=== PATIENT | female | born 1970 | race Caucasian/White ===

== ENCOUNTER → 2019-06-03 10:07 | Outpatient (CLI) | payer OTHER, SELFPAY ==
[2019-06-03 10:39] LABS: Add Manual Diff / Slide Review NO; Basophils Absolute Auto 100 /uL (0-100); Basophils Percent Auto 1.3 % (0-2); Eosinophils Absolute Auto 100 /uL (0-450); Eosinophils Percent Auto 2.6 % (2-4); Hematocrit 40.3 % (36-46); Hemoglobin 13.8 g/dL (12.0-16.0); Lymphocytes Absolute Auto 1400 /uL (1100-4500); Lymphocytes Percent Auto 25.8 % (25-40); Mean Corpuscular HGB Conc 34.3 % (30-36); Mean Corpuscular Hemoglobin 29.4 PG (26-34); Mean Corpuscular Volume 85.9 fL (80-100); Monocytes Absolute Auto 400 /uL (0-900); Monocytes Percent Auto 6.9 % (3-14); Neutrophils Absolute Auto 3400 /uL (1500-7000); Neutrophils Percent Auto 63.4 % (50-75); Platelet Count 274 X10^3/uL (150-400); Red Blood Cell Count 4.69 X10^6/uL (4.0-5.2); Red Cell Distribution Width 13.5 % (11.6-14.8); White Blood Cell Count 5.3 X10^3/uL (4.5-11.0)
[2019-06-06 08:42] LABS: Estrogen 192.8 pg/mL
== END ==
PROVIDERS: PCP Nurse Practitioner Family; Visit Provider Nurse Practitioner Family
DX: N93.9 Abnormal uterine and vaginal bleeding, unspecified (principal)
CPT/HCPCS: 36415; 82672; 83001; 85025

== ENCOUNTER → 2019-06-04 08:50 | Outpatient (CLI) | payer OTHER, SELFPAY ==
--- NOTE | 2019-06-04 08:51 | DI.US.S_ITS ---
PROCEDURE: US PELVIC COMPLETE INDICATIONS: ABNORMAL VAGINAL BLEEDING TECHNIQUE: Real-time scanning was performed of the pelvic organs, with image documentation. Additional endovaginal scanning was necessary due to incomplete visualization of the adnexal and endometrial structures by transabdominal scanning. COMPARISON: [facility], US, PELVIC COMPLETE, 06/03/2012, 14:32. FINDINGS: Transabdominal scanning: Limited scanning through the kidneys shows no hydronephrosis. No pathologic free abdominal or pelvic fluid. Endovaginal scanning: Uterus: Uterus is anteverted and normal in size at 8.1 x 6.3 x 4.9 cm. Heterogeneous echotexture with bulbous configuration. No increased vascularity appreciated. Several small intramural uterine fibroids. The largest fibroid measures 1.3 cm and the anterior mid uterus. The endometrium measures 3 mm in combined thickness. Ovaries: Normal Doppler. No torsion. Right ovary measures 4.6 x 4.4 x 2.5 cm. Simple right ovarian cyst measuring 3.7 x 2.5 x 2.1 cm. Left ovary measures 2.7 x 3.6 x 1.7 cm. Simple collapsed left ovarian cyst measures 2.4 x 1.6 x 0.7 cm. IMPRESSION: 1. Bulbous and heterogeneous fibroid uterus. This raises the possibility of underlying diffuse uterine adenomyosis. If clinically indicated MRI pelvis could be performed to further evaluate the junctional zone thickness for adenomyosis. 2. Normal endometrial thickness. 3. Normal ovaries. Small physiologic ovarian cysts. No free fluid in the pelvis. Dictated by: Andrés Feliciano M.D. on 06/04/2019 at 10:08 Approved by: Andrés Feliciano M.D. on 06/04/2019 at 10:26
== END ==
PROVIDERS: PCP Nurse Practitioner Family; Visit Provider Nurse Practitioner Family
DX: N83.292 Other ovarian cyst, left side (principal); N83.291 Other ovarian cyst, right side; N93.9 Abnormal uterine and vaginal bleeding, unspecified
CPT/HCPCS: 76830; 76856

== ENCOUNTER → 2019-08-19 08:39 | Outpatient (CLI) | payer OTHER, SELFPAY ==
[2019-08-19 09:37] LABS: Hemoglobin A1C% w Est Avg Glu 5.2 % (4.0-6.0)
[2019-08-19 10:21] LABS: Alanine Aminotransferase 31 IU/L (9-52); Albumin 4.3 g/dL (3.5-5.0); Albumin Globulin Ratio 1.6 (1.0-2.8); Alkaline Phosphatase 112 U/L (38-126); Aspartate Aminotransferase 29 IU/L (14-36); BUN Creatinine Ratio 16.3 (6-22); Bilirubin Total 0.6 mg/dL (0.2-1.3); Blood Urea Nitrogen 13 mg/dL (7-17); Calcium 9.5 mg/dL (8.4-10.2); Carbon Dioxide 29 mmol/L (22-32); Chloride 104 mmol/L (98-107); Cholesterol 195 mg/dL (140-199); Estimated Glomerular Filt Rate > 60.0 mL/min (>60); Globulin 2.7 g/dL (1.7-4.1); Glucose 92 mg/dL (70-100); HDL Cholesterol 64 mg/dL (40-60); HEMOLYSIS < 15 (0-50); LDL Cholesterol Calculated 113 mg/dL (<100); Sodium 140 mmol/L (137-145); Triglycerides 91 mg/dL (35-150)
== END ==
PROVIDERS: Visit Provider Psychiatry & Neurology Psychiatry
DX: Z79.899 Other long term (current) drug therapy (principal)
CPT/HCPCS: 36415; 80053; 80061; 83036

== ENCOUNTER → 2019-08-26 10:08 | Outpatient (CLI) | payer OTHER, SELFPAY ==
[2019-08-26 12:28] LABS: Erythrocyte Sedimentation Rate 17 MM/HR (0-20)
[2019-08-26 12:49] LABS: TSH w/ Reflex to FT4 1.46 uIU/mL (0.47-4.68)
[2019-08-28 15:15] LABS: HLA B27 POSITIVE (Negative)
[2019-08-29 01:04] LABS: ANA Screen, IFA NEGATIVE (NEGATIVE)
== END ==
PROVIDERS: Visit Provider Hospitalist
DX: R63.5 Abnormal weight gain (principal); M19.90 Unspecified osteoarthritis, unspecified site
CPT/HCPCS: 36415; 84443; 85651; 86038; 86812

== ENCOUNTER → 2021-04-05 10:51 | Outpatient (CLI) | payer OTHER, SELFPAY ==
[2021-04-05 11:38] LABS: COVID19 -Nasal RAPID Negative (Negative)
== END ==
PROVIDERS: PCP Family Medicine; Visit Provider Registered Nurse Diabetes Educator
DX: Z20.822 Contact with and (suspected) exposure to COVID-19 (principal); J02.9 Acute pharyngitis, unspecified
CPT/HCPCS: 87070; 87635

== ENCOUNTER → 2022-08-14 19:05 | Outpatient (ROUT) | payer BC, SELFPAY ==
[2022-08-14 19:50] LABS: Appearance Urine UA CLEAR; Bilirubin Urine UA NEGATIVE (NEGATIVE); Color Urine UA YELLOW; Glucose Urine UA NEGATIVE (Negative); Ketones Urine UA NEGATIVE (NEGATIVE); Leukocyte Esterase Urine UA 1+ (NEGATIVE); Nitrite Urine UA NEGATIVE (Negative); Occult Blood Urine UA 3+ (Negative); Protein Urine UA TRACE (Negative); Specific Gravity Urine UA <=1.005 (1.000-1.035); Urobilinogen Urine UA 0.2 E.U./dL (0.2)
[2022-08-14 19:56] LABS: pH Urine UA 6.5 (4.5-8.0)
[2022-08-14 19:59] LABS: Bacteria Urine Occasional (0-1); Culture Indicated Urine Specimen Cultured; RBC Urine 10-30/HPF (0-5/HPF); Squamous Epithelial Cell Urine 0-1 /HPF (0-5/HPF); Transitional Epi Cells Urine 0-1/HPF (0-5/HPF); WBC Urine 10-30/HPF (0-5/HPF)
== END ==
PROVIDERS: PCP Family Medicine; Visit Provider Internal Medicine
DX: R31.9 Hematuria, unspecified (principal)
CPT/HCPCS: 81001; 87086

== ENCOUNTER → 2023-04-01 10:29 | Outpatient (CLI) | payer BC, SELFPAY ==
[2023-04-01 11:29] LABS: Add Manual Diff / Slide Review NO; Basophils Absolute Auto 100 /uL (0-100); Basophils Percent Auto 1.1 % (0-2); Eosinophils Absolute Auto 200 /uL (0-450); Eosinophils Percent Auto 3.4 % (2-4); Hematocrit 40.7 % (36-46); Hemoglobin 13.6 g/dL (12.0-16.0); Lymphocytes Absolute Auto 1300 /uL (1100-4500); Mean Corpuscular HGB Conc 33.4 % (30-36); Mean Corpuscular Hemoglobin 28.2 PG (26-34); Mean Corpuscular Volume 84.4 fL (80-100); Monocytes Absolute Auto 300 /uL (0-900); Monocytes Percent Auto 6.2 % (3-14); Neutrophils Absolute Auto 3200 /uL (1500-7000); Neutrophils Percent Auto 63.3 % (50-75); Platelet Count 256 X10^3/uL (150-400); Red Blood Cell Count 4.83 X10^6/uL (4.0-5.2); Red Cell Distribution Width 13.8 % (11.6-14.8)
[2023-04-01 11:37] LABS: Alanine Aminotransferase 20 IU/L (<35); Albumin 4.1 g/dL (3.5-5.0); Albumin Globulin Ratio 1.5 (1.0-2.8); Alkaline Phosphatase 131 U/L (38-126); Aspartate Aminotransferase 23 IU/L (14-36); Bilirubin Total 0.6 mg/dL (0.2-1.3); Blood Urea Nitrogen 12 mg/dL (7-17); Calcium 9.2 mg/dL (8.4-10.2); Carbon Dioxide 29 mmol/L (22-32); Chloride 106 mmol/L (98-107); Cholesterol 169 mg/dL (140-199); Estimated Glomerular Filt Rate > 60 mL/min (>60); Globulin 2.7 g/dL (1.7-4.1); Glucose 101 mg/dL (70-100); HDL Cholesterol 71 mg/dL (40-60); HEMOLYSIS < 15 (0-50); LDL Cholesterol Calculated 87 mg/dL (<100); Potassium 4.4 mmol/L (3.4-5.1); Sodium 140 mmol/L (137-145); Total Protein 6.8 g/dL (6.3-8.2); Triglycerides 57 mg/dL (35-150)
[2023-04-01 12:11] LABS: TSH w/ Reflex to FT4 1.28 uIU/mL (0.47-4.68)
[2023-04-02 07:43] LABS: x Labcorp Estim. Avg Glu (eAG) 111 mg/dL (.); x Labcorp Hemoglobin A1c 5.5 % (4.8-5.6)
[2023-04-05 08:44] LABS: Percent Free Testosterone 0.83 % (0.50-2.80); Testosterone Free 0.28 ng/dL (0.10-0.85); Testosterone Total 34.3 ng/dL (.)
== END ==
PROVIDERS: PCP Family Medicine; Referring Provider Family Medicine; Visit Provider Family Medicine
DX: E66.01 Morbid (severe) obesity due to excess calories (principal); R53.83 Other fatigue
CPT/HCPCS: 36415; 80053; 80061; 83036; 84402; 84403; 84443; 85025

== ENCOUNTER 2023-09-11 20:35 | Emergency (ER) | payer BC, SELFPAY ==
[2023-09-11] VITALS (10 sets, daily range): BP systolic 139–167; BP diastolic 70–98; PULSE 55–85; RESP 12–35; TEMP 37.2; O2SAT 96–100; BMI 39.9
--- NOTE | 2023-09-11 20:50 | ED_ITS ---
HPI - Abdominal Pain General Chief Complaint: Abdominal Pain Stated Complaint: severe abd pain, vomiting Time Seen by Provider: 09/11/23 20:48 Source: patient, family, RN notes reviewed and old records reviewed Mode of arrival: Ambulatory Limitations: no limitations History of Present Illness HPI narrative: 53-year-old female with history of bipolar, ADHD with complaint of sudden onset of epigastric pain radiating to her. Patient states it started about 25 minutes prior to arrival. No fevers but has been sweaty. Shortness of breath. Patient did have nausea and vomiting. No reported issues with bowel movements has been stooling recently without any black or bloody stools. No urinary symptoms. No syncope. Patient has not had similar symptoms in the past. Takes multiple medications but mostly for mental health patient does take omeprazole daily. Denies any prior thoracic or abdominal surgeries. No known drug allergies. No tobacco, alcohol or illicit. Related Data Home Medications Medication Instructions Recorded Confirmed lamotrigine 250 mg tablet,extended 250 mg PO QDAY ##0 05/05/12 03/28/23 release 24 hr prazosin 2 mg capsule 2 mg PO ONCE 08/29/18 03/28/23 clonazepam 0.5 mg disintegrating 0.25 - 0.5 mg PO BIDP PRN ##0 06/03/19 03/28/23 tablet gabapentin 300 mg capsule 300 mg PO DAILY 06/03/19 03/28/23 propranolol 10 mg tablet 10 mg PO DAILY 06/03/19 03/28/23 dextroamphetamine-amphetamine 10 10 mg PO DAILY 03/28/23 03/28/23 mg tablet Previous Rx's Medication Instructions Recorded omeprazole 20 mg capsule,delayed 20 mg PO QDAY #90 tabs 06/27/16 release nystatin 100,000 unit/gram topical 1 applic topical BID #30 grams 04/08/23 powder nystatin 100,000 unit/gram topical 1 applic topical BID #30 grams 05/09/23 cream Allergies Allergy/AdvReac Type Severity Reaction Status Date / Time No Known Allergies Allergy Uncoded 03/28/23 10:06 Review of Systems Review of Systems ROS Unobtainable: All systems reviewed & are unremarkable except as noted in HPI and below Patient History Medical History Weight loss counseling, encounter for Chronic bilateral low back pain without sciatica Bilateral hip pain Fatigue Tinnitus of both ears Morbid obesity Bipolar disorder Osteoarthritis ADHD Fibromyalgia Ankle pain (~2014) Screen for colon cancer Rosacea (~2014) Acne Post traumatic stress disorder (PTSD) Depression Anxiety Foot pain (~1996) Chicken pox (~1977) Narrow angle glaucoma suspect of both eyes Varicose veins of left lower extremity Dyspepsia Surgical History Anesthesia History of foot surgery (~1997) History of colonoscopy (~04/2014) Family History Father Liver cancer History of heart disease Mental health problem Pancreas cancer Sister Flu Mother No problems noted. Brother Rheumatoid arthritis Sister Overweight Anxiety Mental health problem Sister Anxiety Mental health problem Grandfather Stroke Son Arthritis Social History Smoking Status: Never smoker alcohol intake: never substance use type: does not use Smoking Status: Never smoker Substance Use Type: does not use Exam Narrative Exam Narrative: GENERAL: Alert and oriented x three, obese female in moderate distress. HEENT: Head normocephalic, atraumatic, EOMI, pupils reactive, face symmetric, moist mucous membranes NECK: Supple, full range of motion CARDIOVASCULAR: Regular rate and rhythm without murmurs, rubs or gallops. RESPIRATORY: Breath sounds equal bilaterally, no wheezes rales or rhonchi. No tachypnea or accessory muscle use. ABDOMEN: Soft, nontender on examination. Normoactive bowel sounds all 4 quadrants. No guarding or rebound, rigidity, no mass : No CVA tenderness EXTREMITIES: Normal range of motion, no clubbing or edema. Neurovascularly intact. NEUROLOGICAL: Cranial nerves II through XII grossly intact. Moving all extremities SKIN: Warm, dry, no petechiae, no rashes or lesions. Initial Vital Signs Initial Vital Signs: Vital Signs Temperature 98.9 F 09/11/23 20:41 Pulse Rate 85 09/11/23 20:41 Respiratory Rate 24 09/11/23 20:41 Blood Pressure 167/98 H 09/11/23 20:41 Pulse Oximetry 99 09/11/23 20:41 Oxygen Delivery Method Room Air 09/11/23 20:41 Course Orders Ordered: ED Orders 09/11/23 20:49 CT angio chest abdomen pelvis Stat EKG-12 Lead Stat 09/11/23 20:50 Complete Blood Count AUTO DIFF Stat Comprehensive Metabolic Panel Stat Lactate (Lactic Acid) Stat Lipase Stat Troponin & CK Cardiac Panel Stat 09/11/23 22:50 Trop I [Troponin I] Stat Discontinued Medications Sodium Chloride (Normal Saline 0.9%) 1,000 mls @ 1,000 mls/hr IV BOLUS ONE Stop: 09/11/23 21:47 Last Infusion: 09/11/23 22:10 Dose: Infused Documented By: Admin: 09/11/23 21:04 Dose: 1,000 mls/hr Documented By: JOSE Morphine Sulfate (Morphine 4 Mg/Ml Inj) 4 mg IV NOW ONE Stop: 09/11/23 20:49 Last Admin: 09/11/23 21:00 Dose: 4 mg Documented By: JOSE Ondansetron HCl (Ondansetron 4 Mg/2 Ml Inj) 4 mg IV NOW ONE Stop: 09/11/23 20:49 Last Admin: 09/11/23 20:58 Dose: 4 mg Documented By: JOSE Vital Signs Vital signs: Vital Signs - 8 hr 09/11/23 20:41 09/11/23 21:28 09/11/23 21:30 Temperature 98.9 F Pulse Rate 85 65 69 Respiratory Rate 24 17 Blood Pressure 167/98 H Pulse Oximetry 99 98 96 Oxygen Delivery Method Room Air 09/11/23 21:31 09/11/23 21:31 09/11/23 22:00 Temperature Pulse Rate 67 60 Respiratory Rate 13 35 H Blood Pressure 148/70 H Pulse Oximetry 96 98 Oxygen Delivery Method 09/11/23 22:01 09/11/23 22:01 09/11/23 22:30 Temperature Pulse Rate 65 67 Respiratory Rate 22 32 H Blood Pressure 144/74 H Pulse Oximetry 99 99 Oxygen Delivery Method 09/11/23 22:51 09/11/23 22:51 09/11/23 23:00 Temperature Pulse Rate 55 L Respiratory Rate 12 Blood Pressure 139/74 142/74 H Pulse Oximetry 100 Oxygen Delivery Method 09/11/23 23:00 09/11/23 23:30 09/11/23 23:30 Temperature Pulse Rate 64 61 Respiratory Rate 21 17 Blood Pressure 148/82 H Pulse Oximetry 99 96 Oxygen Delivery Method 09/12/23 00:00 09/12/23 00:01 09/12/23 00:01 Temperature Pulse Rate 56 L 55 L Respiratory Rate 10 L 12 Blood Pressure 132/62 Pulse Oximetry 97 96 Oxygen Delivery Method MDM - Abdominal Pain Lab Data 09/11/23 20:50 09/11/23 20:50 Labs: Lab Results 09/11/23 09/11/23 Range/Units 20:50 22:50 WBC 7.1 (4.5-11.0) X10^3/uL RBC 4.82 (4.0-5.2) X10^6/uL Hgb 13.4 (12.0-16.0) g/dL Hct 39.5 (36-46) % MCV 81.9 (80-100) fL MCH 27.9 (26-34) PG MCHC 34.1 (30-36) % RDW 14.3 (11.6-14.8) % Plt Count 312 (150-400) X10^3/uL Neut % (Auto) 60.9 (50-75) % Lymph % (Auto) 30.5 (25-40) % Blount % (Auto) 6.7 (3-14) % Eos % (Auto) 1.6 L (2-4) % Baso % (Auto) 0.3 (0-2) % Neut # (Auto) 4300 (5685-9128) /uL Lymph # (Auto) 2200 (3581-4170) /uL Blount # (Auto) 500 (0-900) /uL Eos # (Auto) 100 (0-450) /uL Baso # (Auto) 0 (0-100) /uL Sodium 139 (137-145) mmol/L Potassium 4.3 (3.4-5.1) mmol/L Chloride 105 (98-107) mmol/L Carbon Dioxide 23 (22-32) mmol/L BUN 14 (7-17) mg/dL Creatinine 1.06 H (0.52-1.04) mg/dL Estimated GFR > 60 (>60) mL/min BUN/Creatinine Ratio 13.2 (6-22) Glucose 98 (70-100) mg/dL Lactate 1.6 (0.7-2.1) mmol/L Calcium 9.6 (8.4-10.2) mg/dL Total Bilirubin 0.5 (0.2-1.3) mg/dL AST 33 (14-36) IU/L ALT 21 (<35) IU/L Alkaline Phosphatase 118 (38-126) U/L Total Creatine Kinase 56 (30-135) U/L Troponin I < 0.012 < 0.012 (0.01-0.034) ng/mL Total Protein 7.6 (6.3-8.2) g/dL Albumin 4.4 (3.5-5.0) g/dL Globulin 3.2 (1.7-4.1) g/dL Albumin/Globulin Ratio 1.4 (1.0-2.8) Lipase 112 (23-300) U/L Point of care testing: Urine Dip Bedside Urine Glucose Negative Bedside Urine Bilirubin - Negative Bedside Urine Ketone - Negative Urine Specific [place] 1.015 Bedside Urine Occult Blood - Negative Bedside Urine pH 6.5 Bedside Urine Protein - Negative Bedside Urine Urobilinogen - Negative Bedside Urine Nitrite - Negative Bedside Urine Leukocytes - Negative Esterase Imaging Data CT angio chest/abd/pelvis: Radiologist's Impression: Close Chest/Abdomen/Pelvis CTA (Signed) Ramon Deluna - 09/11/23 Pelvis Ultrasound (Signed) Andrés Feliciano - 06/04/[address] [place] [address] CT Scan Report Signed Patient: BrennanJanuary MR#: [id number] : 1970 Acct:[id number] Age/Sex: 53 / F Date of Service: 09/11/23 Loc: ED Accession Number: [id number] Procedure: CT angio chest abdomen pelvis Ordering Provider: Dianna Dudley D.O. PROCEDURE: CT ANGIO CHEST ABDOMEN PELVIS INDICATIONS: sudden onset chest/abd pain radiates to back, +vomiting TECHNIQUE: Precontrast 5 mm thick sections acquired from the lung apices to the iliac crests. After the administration of intravenous contrast, 2.5 mm thick sections again acquired from the lung apices to the iliac crests. Maximum intensity projection (MIP) oblique sagittal and coronal reformats were then acquired. For radiation dose reduction, the following was used: automated exposure control. COMPARISON: None. FINDINGS: Image quality: Excellent. AORTA: No acute aortic syndrome or aneurysm. CHEST: Lungs and pleura: No acute airspace opacities. No pleural effusions or pneumothorax. Central and peripheral airways are patent and normal in caliber. Mediastinum: Heart size is normal. No pericardial effusion. No mediastinal or hilar adenopathy by size criteria. Central pulmonary arteries are normal in size. Esophagus is normal in caliber. Small hiatal hernia. Bones and chest wall: No axillary adenopathy by size criteria. No thyroid nodules which require sonographic evaluation. No suspicious bony lesions. No vertebral body compression fractures. ABDOMEN: Vasculature: Celiac trunk and mesenteric arteries are patent. Renal arteries are also patent. Solid organs: Liver is normal in size and enhancement. Gallbladder is unremarkable . Biliary system is non dilated. Pancreas enhances normally. Spleen is normal in size and enhancement. No adrenal nodules. Both kidneys are normal in size and enhancement, without hydronephrosis. Peritoneum and bowel: No free fluid or air. Bowel loops are normal in caliber and wall thickness. Colonic diverticulosis without evidence of diverticulitis. Nodes and vessels: No retroperitoneal or mesenteric adenopathy by size criteria. Inferior vena cava is normal in morphology. Miscellaneous: No ventral hernias. PELVIS: Genitourinary: Bladder wall thickness is normal. Miscellaneous: No inguinal hernias or adenopathy. No ventral hernias. Bones: No suspicious bony lesions. No vertebral body compression fractures. IMPRESSION: No acute aortic syndrome or aneurysm. No findings to explain the patient's abdominal pain/vomiting. Normal pancreas, gallbladder. No obstruction. Colonic diverticulosis without evidence of diverticulitis. Dictated by: Ramon Deluna M.D. on 09/11/2023 at 21:44 Approved by: Ramon Deluna M.D. on 09/11/2023 at 21:48 ECG Data Attestation: I personally reviewed and interpreted this ECG as follows: Prior ECG tracings: not available for review Interpretation: Sinus rhythm rate of 78 CA 142 QRS is 74 QTC [address]. No acute ST elevation or depression is appreciated. No priors for comparison. Repeat EKG shows sinus bradycardia rate of 58 CA 156 QRS is 74 QTC of 422. No acute or dynamic changes appreciated. [facility] Narrative Medical decision making narrative: 53-year-old morbidly obese female, slightly hypertensive but not tachycardic with sudden onset of epigastric pain radiating towards the back. Patient is mildly hypertensive. Differential includes GI, cardiac, vascular labs, EKG, CT angio were obtained. Patient had significant pain improvement with dose of morphine. CBC shows low eosinophils but otherwise normal hemoglobin, platelets and white count, chemistries are negative creatinine is 1.06 patient creatinine was 0.92 on 04/01/2023. Normal LFTs, troponins negative x2 without any acute or dynamic changes on EKG. Does not have any priors for comparison. Patient had CT angio which showed no acute changes, vessels are negative, normal liver gallbladder is unremarkable biliary systems non dilated, no free air or fluid. Patient has colonic diverticulosis without evidence of diverticulitis. Patient was slightly hypertensive on arrival but otherwise appropriate vitals throughout her stay. Discussed with patient no clear source of her symptoms is found today but she much improved and felt appropriate for discharge home. Discussed return precautions. Patient states symptoms are much improved we discussed if she has mild but controlled symptoms maybe useful to evaluate for gastritis or ulcer with EGD versus ultrasound of her gallbladder. Discharge Plan Departure Patient Disposition: Home Clinical Impression: Epigastric abdominal pain Instructions: DI for Epigastric Pain Activity Restrictions/Additional Instructions: Follow-up with your physician for recheck. Your workup today did not show any acute changes if you are having persistent symptoms in the epigastric area EGD may be helpful if it seems to be more in the right upper quadrant they may follow-up with ultrasound although your gallbladder appeared normal on your imaging today. You can try medication such as Pepcid 40 mg once daily [id number] for the next 30 days to see if this is helpful for symptoms Please return if you have new or worsening symptoms, fevers, persistent vomiting, lightheadedness or passing out, black or bloody stools, new chest pain or shortness of breath, new swelling in her extremities or other new or concerning changes. Prescriptions: No Action lamotrigine 250 MG tablet extended release 24hr 250 mg PO QDAY Qty: 0 omeprazole 20 MG capsule,delayed release(DR/EC) 20 mg PO QDAY Qty: 90 3RF clonazepam 0.5 mg tablet,disintegrating 0.25 - 0.5 mg PO BIDP PRNQty: 0 nystatin 100,000 unit/gram cream 1 applic topical BID Qty: 30 0RF Rx Instructions: Apply to affected areas twice daily until resolved prazosin 2 mg capsule 2 mg PO ONCE propranolol 10 mg tablet 10 mg PO DAILY gabapentin 300 mg capsule 300 mg PO DAILY dextroamphetamine-amphetamine 10 mg tablet 10 mg PO DAILY nystatin 100,000 unit/gram powder 1 applic topical BID Qty: 30 5RF Referrals: Shamar Mae DO [Primary Care Provider] - Stand Alone Forms: Patient Portal/API
[2023-09-11] MEDS: ONDANSETRON 4 MG/2 ML INJ IV (20:58)
[2023-09-11] MEDS: MORPHINE 4 MG/ML INJ IV (21:00)
[2023-09-11 21:03] LABS: Add Manual Diff / Slide Review NO; Basophils Absolute Auto 0 /uL (0-100); Basophils Percent Auto 0.3 % (0-2); Eosinophils Absolute Auto 100 /uL (0-450); Eosinophils Percent Auto 1.6 % (2-4); Hematocrit 39.5 % (36-46); Hemoglobin 13.4 g/dL (12.0-16.0); Lymphocytes Absolute Auto 2200 /uL (1100-4500); Lymphocytes Percent Auto 30.5 % (25-40); Mean Corpuscular HGB Conc 34.1 % (30-36); Mean Corpuscular Hemoglobin 27.9 PG (26-34); Mean Corpuscular Volume 81.9 fL (80-100); Monocytes Absolute Auto 500 /uL (0-900); Monocytes Percent Auto 6.7 % (3-14); Neutrophils Absolute Auto 4300 /uL (1500-7000); Neutrophils Percent Auto 60.9 % (50-75); Platelet Count 312 X10^3/uL (150-400); Red Blood Cell Count 4.82 X10^6/uL (4.0-5.2); Red Cell Distribution Width 14.3 % (11.6-14.8); White Blood Cell Count 7.1 X10^3/uL (4.5-11.0)
[2023-09-11] MEDS: SODIUM CHLORIDE 0.9% 1,000 ML 1000 ML IV (21:04)
[2023-09-11 21:15] LABS: Lactate (Lactic Acid) 1.6 mmol/L (0.7-2.1)
[2023-09-11 21:17] LABS: Alanine Aminotransferase 21 IU/L (<35); Albumin 4.4 g/dL (3.5-5.0); Albumin Globulin Ratio 1.4 (1.0-2.8); Alkaline Phosphatase 118 U/L (38-126); Aspartate Aminotransferase 33 IU/L (14-36); BUN Creatinine Ratio 13.2 (6-22); Bilirubin Total 0.5 mg/dL (0.2-1.3); Blood Urea Nitrogen 14 mg/dL (7-17); Calcium 9.6 mg/dL (8.4-10.2); Carbon Dioxide 23 mmol/L (22-32); Chloride 105 mmol/L (98-107); Creatine Kinase 56 U/L (30-135); Estimated Glomerular Filt Rate > 60 mL/min (>60); Globulin 3.2 g/dL (1.7-4.1); Glucose 98 mg/dL (70-100); HEMOLYSIS < 15 (0-50); Lipase 112 U/L (23-300); Potassium 4.3 mmol/L (3.4-5.1); Sodium 139 mmol/L (137-145); Total Protein 7.6 g/dL (6.3-8.2)
[2023-09-11 21:28] LABS: Troponin I < 0.012 ng/mL (0.01-0.034)
[2023-09-11 23:20] LABS: Troponin I < 0.012 ng/mL (0.01-0.034)
[2023-09-12] VITALS: PULSE 56; RESP 10; O2SAT 97
[2023-09-12 00:01] VITALS: BP 132/62; PULSE 55; RESP 12; O2SAT 96
== END 2023-09-12 00:30 | disposition home or self-care (01) ==
PROVIDERS: Emergency Provider Emergency Medicine; PCP Family Medicine
DX: R10.13 Epigastric pain (principal); I10 Essential (primary) hypertension; R06.02 Shortness of breath; R11.2 Nausea with vomiting, unspecified; R07.9 Chest pain, unspecified; R00.1 Bradycardia, unspecified
CPT/HCPCS: 36415; 71275; 74174; 80053; 81003; 82550; 83605; 83690; 84484; 85025; 93005; 93010; 96361; 96374; 96375; 99284; J2270; J2405; Q9967

== ENCOUNTER → 2023-09-17 15:50 | Outpatient (CLI) | payer BC, SELFPAY ==
--- NOTE | 2023-09-17 15:51 | DI.US.S_ITS ---
PROCEDURE: US ABDOMEN LIMITED INDICATIONS: RUQ PAIN TECHNIQUE: Real-time scanning was performed of the abdominal and retroperitoneal organs, with image documentation. COMPARISON: None. FINDINGS: Liver: Liver is normal in size and homogeneous in echotexture. Gallbladder: The gallbladder wall measures 2.1 mm in diameter. Multiple gallstones are present in the fundus. There is a 1.3 cm stone within the cystic duct. No pericholecystic fluid. The patient endorsed a positive sonographic Nickerson sign. Biliary ducts: Intrahepatic bile ducts are non-dilated. Extrahepatic bile duct caliber measures 1.1 mm. Normal is 6-7 mm or less in diameter, or 10 mm or less post-cholecystectomy. Pancreas: Visualized portions of the pancreas are sonographically normal. IMPRESSION: 1. Cholelithiasis in the absence of pericholecystic fluid or wall thickening. Stone noted within the cystic duct. Positive sonographic Nickerson sign. Findings are equivocal for acute cholecystitis. Dictated by: Ashley Cavanaugh M.D. on 09/17/2023 at 16:24 Approved by: Ashley Cavanaugh M.D. on 09/17/2023 at 16:26
== END ==
PROVIDERS: PCP Family Medicine; Referring Provider Family Medicine; Visit Provider Family Medicine
DX: K80.00 Calculus of gallbladder with acute cholecystitis without obstruction (principal); R10.11 Right upper quadrant pain; R10.13 Epigastric pain
CPT/HCPCS: 76705

== ENCOUNTER 2023-09-18 14:11 | Emergency (ER) | payer BC, SELFPAY ==
[2023-09-18 14:14] VITALS: BP 146/75; PULSE 82; RESP 18; TEMP 36.3; O2SAT 99; BMI 39.9
--- NOTE | 2023-09-18 15:39 | ED_ITS ---
HPI - Abdominal Pain General Chief Complaint: Abdominal Pain Stated Complaint: Dr rosado/anneliese Time Seen by Provider: 09/18/23 14:21 Source: patient, RN notes reviewed and old records reviewed Mode of arrival: Ambulatory Limitations: no limitations History of Present Illness HPI narrative: 53-year-old female with history of bipolar, prior surgical repair after perforation with colonoscopy in 2013. Patient states she had several days of abdominal pain which is now starting to improve. It is almost completely resolved right upper quadrant radiated towards the back. No fevers, no chills. She had nausea and vomiting for several days but no longer. States she is been having a little bit of constipation but stooling. Notes her urine has been darker but no dysuria urgency or frequency. Denies any chest pain, shortness of breath or other symptoms. Her primary care doctor Ganga ordered an abdominal ultrasound. Was found to have changes including thickened gallbladder wall multiple gallstones 1 in the cystic duct no pericholecystic fluid but positive Nickerson's sign with normal biliary ducts. Discussed with patient she is feeling improved. She was told to come to the ER for consultation with a surgeon, workup and possible removal of her gallbladder. Related Data Home Medications Medication Instructions Recorded Confirmed lamotrigine 250 mg tablet,extended 250 mg PO QDAY ##0 05/05/12 09/16/23 release 24 hr prazosin 2 mg capsule 2 mg PO ONCE 08/29/18 09/16/23 clonazepam 0.5 mg disintegrating 0.25 - 0.5 mg PO BIDP PRN ##0 06/03/19 09/16/23 tablet gabapentin 300 mg capsule 300 mg PO DAILY 06/03/19 09/16/23 propranolol 10 mg tablet 10 mg PO DAILY 06/03/19 09/16/23 dextroamphetamine-amphetamine 10 10 mg PO DAILY 03/28/23 09/16/23 mg tablet Previous Rx's Medication Instructions Recorded omeprazole 20 mg capsule,delayed 20 mg PO QDAY #90 tabs 06/27/16 release nystatin 100,000 unit/gram topical 1 applic topical BID #30 grams 05/09/23 cream omeprazole 40 mg capsule,delayed 40 mg PO DAILY #30 caps 09/16/23 release Allergies Allergy/AdvReac Type Severity Reaction Status Date / Time No Known Allergies Allergy Uncoded 09/18/23 14:16 Review of Systems Review of Systems ROS Unobtainable: All systems reviewed & are unremarkable except as noted in HPI and below Patient History Medical History Weight loss counseling, encounter for Chronic bilateral low back pain without sciatica Bilateral hip pain Fatigue Tinnitus of both ears Morbid obesity Bipolar disorder Osteoarthritis ADHD Fibromyalgia Ankle pain (~2014) Screen for colon cancer Rosacea (~2014) Acne Post traumatic stress disorder (PTSD) Depression Anxiety Foot pain (~1996) Chicken pox (~1977) Narrow angle glaucoma suspect of both eyes Varicose veins of left lower extremity Dyspepsia Surgical History Anesthesia History of foot surgery (~1997) History of colonoscopy (~04/2014) Family History Father Liver cancer History of heart disease Mental health problem Pancreas cancer Sister Flu Mother No problems noted. Brother Rheumatoid arthritis Sister Overweight Anxiety Mental health problem Sister Anxiety Mental health problem Grandfather Stroke Son Arthritis Social History Smoking Status: Never smoker alcohol intake: never substance use type: does not use Smoking Status: Never smoker alcohol intake frequency: 0-2 drinks per day Substance Use Type: does not use Exam Narrative Exam Narrative: GENERAL: Alert and oriented x three, female in no acute distress HEENT: Head normocephalic, atraumatic, EOMI, pupils reactive, face symmetric, moist mucous membranes NECK: Supple, full range of motion CARDIOVASCULAR: Regular rate and rhythm without murmurs, rubs or gallops. RESPIRATORY: Breath sounds equal bilaterally, no wheezes rales or rhonchi. ABDOMEN: Soft, nontender. Normoactive bowel sounds all 4 quadrants. No guarding or rebound, rigidity, no mass : No CVA tenderness EXTREMITIES: Normal range of motion, no clubbing or edema. Neurovascularly intact NEUROLOGICAL: Cranial nerves II through XII grossly intact. Moving all extremities SKIN: Warm, dry, no petechiae, no rashes or lesions. Initial Vital Signs Initial Vital Signs: Vital Signs Temperature 97.3 F L 09/18/23 14:14 Pulse Rate 82 09/18/23 14:14 Respiratory Rate 18 09/18/23 14:14 Blood Pressure 146/75 H 09/18/23 14:14 Pulse Oximetry 99 09/18/23 14:14 Oxygen Delivery Method Room Air 09/18/23 14:14 Course Orders Ordered: ED Orders 09/18/23 14:21 CBC Auto Diff [Complete Blood Count AUTO DIFF] Stat CMP [Comprehensive Metabolic Panel] Stat Lipase Stat Vital Signs Vital signs: Vital Signs - 8 hr 09/18/23 14:14 09/18/23 16:17 09/18/23 16:18 Temperature 97.3 F L Pulse Rate 82 86 Respiratory Rate 18 18 Blood Pressure 146/75 H 132/88 Pulse Oximetry 99 99 Oxygen Delivery Method Room Air MDM - Abdominal Pain Imaging Data US - abdomen: Radiologist's Impression: [address] [address] Ultrasound Report Signed Patient: BrennanJanuary MR#: [id number] : 1970 Acct:[id number] Age/Sex: 53 / F Date of Service: 09/17/23 Loc: US Accession Number: [id number] Procedure: US abdomen limited Ordering Provider: Jenny Schuler D.O. PROCEDURE: US ABDOMEN LIMITED INDICATIONS: RUQ PAIN TECHNIQUE: Real-time scanning was performed of the abdominal and retroperitoneal organs, with image documentation. COMPARISON: None. FINDINGS: Liver: Liver is normal in size and homogeneous in echotexture. Gallbladder: The gallbladder wall measures 2.1 mm in diameter. Multiple gallstones are present in the fundus. There is a 1.3 cm stone within the cystic duct. No pericholecystic fluid. The patient endorsed a positive sonographic Nickerson sign. Biliary ducts: Intrahepatic bile ducts are non-dilated. Extrahepatic bile duct caliber measures 1.1 mm. Normal is 6-7 mm or less in diameter, or 10 mm or less post-cholecystectomy. Pancreas: Visualized portions of the pancreas are sonographically normal. IMPRESSION: 1. Cholelithiasis in the absence of pericholecystic fluid or wall thickening. Stone noted within the cystic duct. Positive sonographic Nickerson sign. Findings are equivocal for acute cholecystitis. Dictated by: Ashley Cavanaugh M.D. on 09/17/2023 at 16:24 Approved by: Ashley Cavanaugh M.D. on 09/17/2023 at 16:26 MDM Narrative Medical decision making narrative: 53-year-old female presents with right upper quadrant pain which has since improved had an outpatient ultrasound which showed thickening of the wall, stone in the cystic duct with stones in the gallbladder, no pericholecystic fluid, positive Nickerson's sign. Patient is nontender on examination now she states symptoms have been improving. She very politely declined blood work she states she is improving but was told to come to the ER to see about following up with General surgery since we are going into a holiday weekend. I did discuss with patient lab work would be helpful to make sure her not having significant changes to her liver enzymes or other changes to renal function, white count. She does not appear septic by labs she otherwise is well- appearing. Spoke with general surgery, Dr. Ramesh: Discussed findings from today, he agrees with patient's asymptomatic afebrile well-appearing can follow up with the office. Return precautions for plan. Discharge Plan Departure Patient Disposition: Home Clinical Impression: Cholelithiasis Instructions: DI for Gallstones Activity Restrictions/Additional Instructions: Please follow up with General surgery. Call to set up an appointment. Your ultrasound from yesterday did show gallstones, including 1 in the duct of the gallbladder. There is no fluid the wall is not thickened. You can take Tylenol up to a 1000 mg every 6 hours as needed pain. Please return for fevers new or worsening abdominal back or flank pain, persistent vomiting, lightheadedness or passing out or other new or concerning changes. Prescriptions: No Action lamotrigine 250 MG tablet extended release 24hr 250 mg PO QDAY Qty: 0 omeprazole 20 MG capsule,delayed release(DR/EC) 20 mg PO QDAY Qty: 90 3RF clonazepam 0.5 mg tablet,disintegrating 0.25 - 0.5 mg PO BIDP PRNQty: 0 nystatin 100,000 unit/gram cream 1 applic topical BID Qty: 30 0RF Rx Instructions: Apply to affected areas twice daily until resolved prazosin 2 mg capsule 2 mg PO ONCE propranolol 10 mg tablet 10 mg PO DAILY gabapentin 300 mg capsule 300 mg PO DAILY dextroamphetamine-amphetamine 10 mg tablet 10 mg PO DAILY omeprazole 40 mg capsule,delayed release(DR/EC) 40 mg PO DAILY Qty: 30 0RF Referrals: Jac Ramesh MD [Physician] - Shamar Mae DO [Primary Care Provider] - Stand Alone Forms: Patient Portal/API
[2023-09-18 16:17] VITALS: PULSE 86; O2SAT 99
[2023-09-18 16:18] VITALS: BP 132/88; RESP 18
== END 2023-09-18 16:25 | disposition home or self-care (01) ==
PROVIDERS: Emergency Provider Emergency Medicine; PCP Family Medicine
DX: K80.20 Calculus of gallbladder without cholecystitis without obstruction (principal)
CPT/HCPCS: 99281; 99283

== ENCOUNTER → 2023-09-25 16:58 | Outpatient (CLI) | payer BC, SELFPAY ==
[2023-09-25 17:35] LABS: Add Manual Diff / Slide Review NO; Basophils Absolute Auto 0 /uL (0-100); Basophils Percent Auto 0.3 % (0-2); Eosinophils Absolute Auto 200 /uL (0-450); Eosinophils Percent Auto 3.1 % (2-4); Hematocrit 41.6 % (36-46); Lymphocytes Absolute Auto 1200 /uL (1100-4500); Lymphocytes Percent Auto 25.5 % (25-40); Mean Corpuscular HGB Conc 33.7 % (30-36); Mean Corpuscular Hemoglobin 28.2 PG (26-34); Mean Corpuscular Volume 83.7 fL (80-100); Monocytes Absolute Auto 400 /uL (0-900); Neutrophils Absolute Auto 3100 /uL (1500-7000); Neutrophils Percent Auto 63.1 % (50-75); Platelet Count 263 X10^3/uL (150-400); Red Blood Cell Count 4.97 X10^6/uL (4.0-5.2); Red Cell Distribution Width 14.5 % (11.6-14.8); White Blood Cell Count 4.9 X10^3/uL (4.5-11.0)
[2023-09-25 18:00] LABS: Alanine Aminotransferase 141 IU/L (<35); Albumin 4.2 g/dL (3.5-5.0); Albumin Globulin Ratio 1.4 (1.0-2.8); Alkaline Phosphatase 246 U/L (38-126); Aspartate Aminotransferase 88 IU/L (14-36); BUN Creatinine Ratio 14.1 (6-22); Bilirubin Total 1.7 mg/dL (0.2-1.3); Blood Urea Nitrogen 12 mg/dL (7-17); Calcium 9.3 mg/dL (8.4-10.2); Carbon Dioxide 27 mmol/L (22-32); Chloride 105 mmol/L (98-107); Estimated Glomerular Filt Rate > 60 mL/min (>60); Globulin 3.1 g/dL (1.7-4.1); Glucose 97 mg/dL (70-100); HEMOLYSIS < 15 (0-50); Lipase 152 U/L (23-300); Sodium 140 mmol/L (137-145); Total Protein 7.3 g/dL (6.3-8.2)
== END ==
PROVIDERS: PCP Family Medicine; Referring Provider Surgery; Visit Provider Surgery
DX: K80.20 Calculus of gallbladder without cholecystitis without obstruction (principal)
CPT/HCPCS: 36415; 80053; 83690; 85025

== ENCOUNTER 2023-10-07 10:03 | Day surgery (SDC) | payer BC, SELFPAY ==
[2023-10-02 14:49] VITALS: BMI 42.4
[2023-10-07] VITALS (15 sets, daily range): BP systolic 102–148; BP diastolic 51–99; PULSE 42–73; RESP 11–23; TEMP 35.7–36.7; O2SAT 92–100; BMI 42.4
--- NOTE | 2023-10-07 | PATH_ITS ---
[facility] Accession Number: [id number] No. of containers..01 Tissue . 01 Material submitted: . gallbladder - GALLBLADDER AND CONTENTS . 01 Diagnosis: Gallbladder, Cholecystectomy: Chronic cholecystitis and cholelithiasis. Negative for dysplasia and neoplasia. MRV 10/16/2023 194 Local . 01 Electronically signed: . Kitty Gonzáles MD, Pathologist NPI- [id number] . 01 Gross description: . The specimen is received in formalin, labeled with the patient's name, , and gallbladder and contents, and consists of a disrupted gallbladder measuring 8.7 x 2.4 x 2.4 cm with a full-thickness defect measuring 0.3 cm in greatest dimension. The cystic duct margin is inked blue. No pericystic lymph node is identified. The lumen contains thick sludgy bile with a green-brown, roughened calculus measuring 3.1 cm in greatest dimension not grossly obstructing the cystic duct. The mucosa is green to cedillo, partially denuded with no yellow discoloration, polyps, or lesions identified. The mark average 0.4 cm thick. [facility] sections to include the cystic duct margin and full-thickness sections are submitted in cassette A1. ([id number]) /FRR 10/09/2023 0335 Local . 01 Pathologist provided ICD-10: K80.20 . 01 CPT . 723208 Specimen Comment: A courtesy copy of this report has been sent to [phone] Performed at: 01 [facility] [address] [place] [address] [address] [facility], [place], [place] [id number] MD Edvin Brooks MD Phone: [phone]
[2023-10-07] MEDS: LACTATED RINGERS 1,000 ML 42 ML IV ×3 (10:19→15:21)
[2023-10-07] MEDS: SCOPOLAMINE 1 PATCH TOP (10:28)
--- NOTE | 2023-10-07 11:26 | PM.PREOP ---
Pre-operative Note COVID-19 COVID-19 status: Not tested Interval Note History & Physical reviewed/Exam performed by Physician: Yes Changes to H&P: Yes H&P completed within 30 days and has changed as indicated here:: January had her ERCP 3 days ago with findings of debris and sludge in the common duct ASA Class (for procedural sedation): II
[2023-10-07] MEDS: CEFAZOLIN 2 GM/100 ML PREMIX 100 ML IV (12:05)
[2023-10-07] MEDS: BUPIVACAINE 0.5% (PF) 30 ML, EPINEPHrine 0.15 MG INJ (12:25)
--- NOTE | 2023-10-07 12:29 | SUR.OPER ---
Supine on padded OR bed, head on pillow, safety belt at thigh, left arm padded and tucked at side. Right arm secured on padded arm board <90 degrees abduction. Legs uncrossed. Padded footboard in place. Tape over blanket to secure lower legs.
--- NOTE | 2023-10-07 12:30 | DI.RAD.S_ITS ---
PROCEDURE: XR CHOLANGIOGRAM OPERATIVE INDICATIONS: INTEROPERATIVE CHOLANGIOGRAM COMPARISON: None. FINDINGS: Biliary ducts: The surgeon injected contrast into the biliary ducts after cannulation of the cystic duct stump. Visualized intra- and extrahepatic bile ducts are normal in caliber, without strictures. No intraluminal filling defects to suggest retained ductal stones or sludge. No evidence for iatrogenic ductal injury. Duodenum: Contrast flows promptly through the sphincter of Oddi into the duodenum, which appears normal in caliber. IMPRESSION: Intraoperative cholangiogram demonstrates no intraluminal filling defects to suggest retained ductal stones or sludge. Please see operative report for details. Dictated by: Pato Gray M.D. on 10/07/2023 at 16:51 Approved by: Pato Gray M.D. on 10/07/2023 at 16:53
[2023-10-07] MEDS: iopamidoL 30 ML VIAL INJ (12:41)
--- NOTE | 2023-10-07 13:51 | PM.OP.1 ---
Operative Date/Time/Diagnoses Date of procedure: 10/07/23 Time of procedure: 13:51 Pre-op diagnosis: Symptomatic cholelithiasis Post-op diagnosis: same Procedure & Clinicians Procedure: Laparoscopic cholecystectomy with intraoperative cholangiogram Same procedure as scheduled: Yes Surgeon: Josué Chang Anesthesia Type: General Operative Notes Procedure in detail: The patient was given preoperative antibiotic. The patient was brought to the operating room, placed on the table in the supine position. General endotracheal anesthesia was induced. The abdomen was prepped and draped. A time-out was performed. We made a 1 cm infraumbilical incision. We dissected down to the base of the umbilical stalk using cautery. We grasped the umbilical stalk with a Dominick clamp to elevate the abdominal wall. We scored the fascia in the midline with cautery 1 cm. We pierced the peritoneum with a Peon clamp. The Bartolo port was placed and the abdomen was insufflated to 15 mmHg. A 5 mm 30 degree laparoscopic was inserted. There was no evidence of any injury from the entry. Next, we placed 5 mm ports in the subxiphoid position and right upper quadrant at the midclavicular line and anterior axillary line. The patient was then positioned in reverse Trendelenburg and the table was tilted to the left. Gallbladder was quite intrahepatic. The gallbladder was grasped at the dome and retracted cephalad. There were some adhesions of mesenteric tissue to the gallbladder and liver which were taken down direct vision to allow full exposure. We then dissected the cystic structures with a combination of hook cautery and blunt dissection. We obtained a critical view. Next, a cholangiogram was performed using the 6 Lithuanian ureteral catheter. There was good flow of contrast into the duodenum and liver with no obvious filling defects. The cystic duct-common duct junction was well visualized. We then placed hemoclips on the cystic duct and artery and divided the cystic duct and artery sharply between the clips. The gallbladder was then dissected off the liver and placed in a specimen retrieval bag. We irrigated the right upper quadrant and all the aspirate returned clear. We then removed the 5 mm ports under direct vision we removed the Bartolo port. We then injected some local into the fascia and closed the fascia with four interrupted 0 Vicryl sutures. The skin incisions were closed with 4 Monocryl and Steri-Strips were applied. Band-Aids were applied over the Steri-Strips. EBL: 30 mL Specimen: Gallbladder and contents Post-operative Disposition: PACU
[2023-10-07] MEDS: HYDROMORPHONE 1 MG INJ IV ×6 (13:56→15:30)
[2023-10-07] MEDS: ONDANSETRON 4 MG/2 ML INJ IV (13:59)
[2023-10-07] MEDS: LORazepam 2 MG/ML INJ 0.25 MG IV ×2 (14:19→14:30)
--- NOTE | 2023-10-07 14:41 | SUR.PHASEI ---
Patient still c/o nausea and pain after medicating. María MANRIQUEZ notified. VVO IV maximino. Discussed HR 40s-50s. No other orders.
[2023-10-07] MEDS: diphenhydrAMINE 50 MG/ML VIAL 12.5 MG IV (14:49)
--- NOTE | 2023-10-07 15:03 | SUR.PHASEI ---
Spouse called and updated with patient status.
--- NOTE | 2023-10-07 15:20 | SUR.PHASEI ---
María ACID MAKER at bedside, notified patient still reporting elevated pain, and continued nausea. VVO 0.5mg IV dilaudid, may repeat x1.
[2023-10-07] MEDS: OXYCODONE IR 5 MG TABLET PO (16:47)
== END 2023-10-07 16:54 | disposition home or self-care (01) ==
PROVIDERS: PCP Family Medicine; Referring Provider Surgery; Visit Provider Surgery
PROC: 0FT44ZZ Resection of Gallbladder, Percutaneous Endoscopic Approach (ICD-10-PCS; CPT 47562; principal; 2023-10-07 11:15)
DX: K80.10 Calculus of gallbladder with chronic cholecystitis without obstruction (principal)
CPT/HCPCS: 47563; 74300; J0171; J0690; J1100; J1170; J1200; J1885; J2060; J2250; J2405; J2704; J3010; Q9967

== ENCOUNTER → 2023-11-04 14:44 | Outpatient (CLI) | payer BC, SELFPAY ==
[2023-11-04 16:06] LABS: Add Manual Diff / Slide Review NO; Basophils Absolute Auto 100 /uL (0-100); Eosinophils Absolute Auto 100 /uL (0-450); Hemoglobin 13.2 g/dL (12.0-16.0); Lymphocytes Absolute Auto 1400 /uL (1100-4500); Lymphocytes Percent Auto 23.5 % (25-40); Mean Corpuscular HGB Conc 33.8 % (30-36); Mean Corpuscular Hemoglobin 28.5 PG (26-34); Mean Corpuscular Volume 84.3 fL (80-100); Monocytes Absolute Auto 400 /uL (0-900); Monocytes Percent Auto 6.5 % (3-14); Neutrophils Absolute Auto 4100 /uL (1500-7000); Platelet Count 282 X10^3/uL (150-400); Red Blood Cell Count 4.62 X10^6/uL (4.0-5.2); Red Cell Distribution Width 13.9 % (11.6-14.8); White Blood Cell Count 6.2 X10^3/uL (4.5-11.0)
[2023-11-04 16:24] LABS: Alanine Aminotransferase 31 IU/L (<35); Albumin 3.8 g/dL (3.5-5.0); Albumin Globulin Ratio 1.3 (1.0-2.8); Alkaline Phosphatase 143 U/L (38-126); Aspartate Aminotransferase 30 IU/L (14-36); Bilirubin Total 0.8 mg/dL (0.2-1.3); Blood Urea Nitrogen 15 mg/dL (7-17); Calcium 9.8 mg/dL (8.4-10.2); Carbon Dioxide 28 mmol/L (22-32); Chloride 103 mmol/L (98-107); Estimated Glomerular Filt Rate > 60 mL/min (>60); Globulin 2.9 g/dL (1.7-4.1); Glucose 93 mg/dL (70-100); HEMOLYSIS < 15 (0-50); Lipase 98 U/L (23-300); Potassium 4.7 mmol/L (3.4-5.1); Sodium 138 mmol/L (137-145); Total Protein 6.7 g/dL (6.3-8.2)
== END ==
PROVIDERS: PCP Family Medicine; Referring Provider Surgery; Visit Provider Surgery
DX: R10.9 Unspecified abdominal pain (principal)
CPT/HCPCS: 36415; 80053; 83690; 85025

== ENCOUNTER 2025-04-08 15:07 | Outpatient (RCR) | payer BC, SELFPAY ==
--- NOTE | 2025-04-08 16:40 | PT.OIE ---
Current Diagnoses Cystocele, unspecified (04/08/25) Rectocele (04/08/25) Past Medical History (Last Updated 02/17/25 @ 17:18 by Candice Hoffman MD) Acne ADHD Ankle pain (~2014) Anxiety Bilateral hip pain Bipolar disorder Chicken pox (~1977) Chronic bilateral low back pain without sciatica Depression Dyspepsia Fatigue Fibromyalgia Foot pain (~1996) Morbid obesity Narrow angle glaucoma suspect of both eyes Osteoarthritis POP-Q stage 2 cystocele POP-Q stage 2 rectocele Post traumatic stress disorder (PTSD) Rosacea (~2014) Screen for colon cancer Tinnitus of both ears Varicose veins of left lower extremity Weight loss counseling, encounter for Past Surgical History (Last Updated 03/18/25 @ 17:23 by Lor Alfonso MD) Anesthesia History of colonoscopy (~04/2014) History of foot surgery (~1997) Hx laparoscopic cholecystectomy Visit Care Team Role Provider Type Lor Alfonso MD Family Provider Physician Primary Care Provider Specialty: Family Practice Obstetrics Address: [address] [place] [id number] Email: [email or web address] Candice Hoffman MD Attending Provider Physician Referring Provider Specialty: THERMOPLASTIC TECHNICIAN Address: [address] [place] [address], [id number] Email: [email or web address] Physical Therapy Initial Evaluation PT-OP-A Visit Information Start: 04/08/25 15:18 Freq: Status: Active Protocol: Document 04/08/25 15:18 [facility] (Rec: 04/08/25 15:39 [facility] [id number]) Out-Patient Physical Therapy Visit Information Visit Information Visit Type Initial Evaluation Visit Start Time 15:15 Visit Stop Time 16:00 Visit Number 1 Evaluation Information Evaluation Date 04/08/25 PT-OP-B Current Condition Start: 04/08/25 15:18 Freq: Status: Active Protocol: Document 04/08/25 15:18 [facility] (Rec: 04/08/25 15:39 [facility] [id number]) Current Condition History of Current Condition Onset Date 1 -2 years ago History of Current a year ago noted a bowel was bulging into her vaginal Condition wall and then a few months ago she has a history of constipation and after a bad episode she noted more bulging she has a bowel movement every couple of days. SHe is on semi glutide for weight loss and she started it in june. has to strain. SHe has urinary leakage, there is times when she is sitting that she stands and suddenly has the urge to void and she will leak she can wake up at night leaking and this has happened 3-4 times she drinks 30-40 oz of water per day and 3 per day of soda 3 vaginal deliveries with tearing into the perineum with her first PT-OP-I Pelvic Floor Start: 04/08/25 15:18 Freq: Status: Active Protocol: Document 04/08/25 16:17 [facility] (Rec: 04/08/25 16:23 [facility] [id number]) Pelvic Floor Assessment Urine Pelvic Floor Surgery No Urinary Symptoms Urge Sensation Other Urinary pelvic organ prolapse Symptoms Leakage Size Medium Leakage Cause Exercise Other Leakage Causes with urgency and when walking to the bathroom, pt can leak in all positions such as lying down, sitting, and standing Leaks Per Day 3 per week Voiding Frequency 6-7 times Nocturia 1-2 times Prolapse Cystocele Grade 2 Rectocele Grade 2 Contraction Ability Voluntary Weak Contraction Voluntary Relaxation Weak Manual Muscle 2 Testing Left Manual Muscle 1 Testing Right Manual Muscle 2 Testing Anterior Manual Muscle 2 Testing Posterior Muscle Endurance ( 4 Seconds) PT-OP-Q Treatments Start: 04/08/25 15:18 Freq: Status: Active Protocol: Document 04/08/25 16:15 [facility] (Rec: 04/08/25 16:17 [facility] [id number]) Therapeutic Exercises Supine Exercises hooklying abduction with theraband Equipment Used level 3 TB Reps/Minutes x 10 reps holding 5 sec hooklying adduction with pelvic floor activation Reps/Minutes 10 reps holding 5 seconds and resting 10 seconds Self-Care/Home Management Treatment Education Other Education Maribel was educated on the ILU self massage to help assist with stimulating bowel movements PT-OP-T Assessment and Plan Start: 04/08/25 15:18 Freq: Status: Active Protocol: Document 04/08/25 15:40 [facility] (Rec: 04/08/25 15:59 [facility] [id number]) Physical Therapy Assessment Rehab Potential Rehabilitation Good Potential Evaluation Complexity Number of Personal 1-2 Factors/ Comorbidities Number of Body 3 Systems Impaired Clinical Evolving Presentation at Evaluation Impairments Impairments Activity Tolerance,Functional Activities,Functional Mobility,Soft Tissue Mobility,Strength Other Impairments pelvic organ prolapse grade 2 cystocele and rectocele, constipation with diff Other Concerns Barriers to weight and constipation Rehabilitation Goals 3 Impairment chronic constipation contributing to pelvic organ prolapse Short Term Goal (STG Maribel is educated on bowel stimulating massage, ) encouraged to increase fluid intake/fiber, and walk daily to help stimulate bowel movements STG Duration 4 weeks 2 Impairment decreased pelvic floor endurance Short Term Goal (STG Maribel is able to sustain a pelvic floor contraction in ) supine x 10 seconds STG Duration 4 weeks Group Home Goal (LTG) Maribel is able to sustain a pelvic floor contraction in standing x 5 seconds LTG Duration 8 weeks 1 Impairment Pelvic floor weakness Courtroom Reporter Goal (LTG) Maribel is able to improve pelvic floor strength by at least 1 muscle grade to 3/5 or better for the levator ani LTG Duration 8 weeks Assessment Summary Assessment Maribel is a 55 year old female who presents to PT today with pelvic organ prolapse and weak pelvic floor. She has a history of constipation and has been aware for some time now that she has to strain with bowel movements and that the rectum will protrude into the vaginal wall. More recently she has felt more anterior pelvic pressure. Pressure symptoms are primarily with straining for bowel movements. Maribel has been on weight loss medication which she notes may be contributing to her constipation. She reports often going 3-4 days between bowel movements. Maribel notes a small amount of urinary stress incontinence as well as urgency at times. We discussed fluid intake and Maribel has been trying to get in more fluids per day however water is 30-40 oz per day only at this time. She does have 3 cans of caffeinated soda per day. With exam today a 2nd degree cystocele and rectocele were both palpable. There is stool palpated in the rectum at the time of eval as well as in the descending colon. Maribel is able to facilitate all mark of the pelvic floor with more weakness on the right lateral wall. Her MMT is as follows: 2/5 MMT for anterior, left, and posterior mark and 1/5 MMT for the right wall. Maribel does have a history of right sided hip pain. She lacks endurance to sustain a pelvic floor contraction for more than 4 seconds. She was educated today on increasing water intake, walking 20 min a day if she can and adding in fiber to her diet as her constipation is a large contributor to her prolapse symptoms. I also started her on pelvic floor endurance holds and hip ER strengthening. She tolerated this well and is a good candidate for PT Physical Therapy Plan Frequency and Duration Frequency of 1x/Week Treatment Duration of 8 treatment (weeks) Plan of Care Start 04/08/25 Date Plan of Care End 06/03/25 Date Therapeutic Interventions Therapeutic Home Exercise Program,Manual Therapy,Neuromuscular Re- Interventions education,Patient/Caregiver Education,Self-Care/Home Management,Soft Tissue Mobilization,Therapeutic Exercises
--- NOTE | 2025-04-08 16:41 | PT.OPPOC ---
Physical, Occupational & Speech Therapy At [facility] Current Diagnoses Cystocele, unspecified (04/08/25) Rectocele (04/08/25) Visit Care Team Role Provider Type Lor Alfonso MD Family Provider Physician Primary Care Provider Specialty: Family Practice Obstetrics Address: [address] [place] [address], [id number] Email: [email or web address] Candice Hoffman MD Attending Provider Physician Referring Provider Specialty: POWER SYSTEM ELECTRICAL ENGINEER Address: [address] [place] [address], [id number] Email: [email or web address] Plan Of Care PT-OP-B Current Condition Start: 04/08/25 15:18 Freq: Status: Active Protocol: Document 04/08/25 15:18 [facility] (Rec: 04/08/25 15:39 [facility] [id number]) Current Condition History of Current Condition Onset Date 1 -2 years ago History of Current a year ago noted a bowel was bulging into her vaginal Condition wall and then a few months ago she has a history of constipation and after a bad episode she noted more bulging she has a bowel movement every couple of days. SHe is on weight loss medication and she started it in June. has to strain. She has urinary leakage, there is times when she is sitting that she stands and suddenly has the urge to void and she will leak she can wake up at night leaking and this has happened 3-4 times she drinks 30-40 oz of water per day and 3 per day of soda 3 vaginal deliveries with tearing into the perineum with her first PT-OP-T Assessment and Plan Start: 04/08/25 15:18 Freq: Status: Active Protocol: Document 04/08/25 15:40 [facility] (Rec: 04/08/25 15:59 [facility] [id number]) Physical Therapy Assessment Rehab Potential Rehabilitation Good Potential Evaluation Complexity Number of Personal 1-2 Factors/ Comorbidities Number of Body 3 Systems Impaired Clinical Evolving Presentation at Evaluation Impairments Impairments Activity Tolerance,Functional Activities,Functional Mobility,Soft Tissue Mobility,Strength Other Impairments pelvic organ prolapse grade 2 cystocele and rectocele, constipation with diff Other Concerns Barriers to weight and constipation Rehabilitation Goals 3 Impairment chronic constipation contributing to pelvic organ prolapse Short Term Goal (STG Maribel is educated on bowel stimulating massage, ) encouraged to increase fluid intake/fiber, and walk daily to help stimulate bowel movements STG Duration 4 weeks 2 Impairment decreased pelvic floor endurance Short Term Goal (STG Maribel is able to sustain a pelvic floor contraction in ) supine x 10 seconds STG Duration 4 weeks Alf Goal (LTG) Maribel is able to sustain a pelvic floor contraction in standing x 5 seconds LTG Duration 8 weeks 1 Impairment Pelvic floor weakness Front Office Assistant Goal (LTG) Maribel is able to improve pelvic floor strength by at least 1 muscle grade to 3/5 or better for the levator ani LTG Duration 8 weeks Assessment Summary Assessment Marbiel is a 55 year old female who presents to PT today with pelvic organ prolapse and weak pelvic floor. She has a history of constipation and has been aware for some time now that she has to strain with bowel movements and that the rectum will protrude into the vaginal wall. More recently she has felt more anterior pelvic pressure. Pressure symptoms are primarily with straining for bowel movements. Maribel has been on weight loss medication which she notes may be contributing to her constipation. She reports often going 3-4 days between bowel movements. Maribel notes a small amount of urinary stress incontinence as well as urgency at times. We discussed fluid intake and Maribel has been trying to get in more fluids per day however water is 30-40 oz per day only at this time. She does have 3 cans of caffeinated soda per day. With exam today a 2nd degree cystocele and rectocele were both palpable. There is stool palpated in the rectum at the time of eval as well as in the descending colon. Maribel is able to facilitate all mark of the pelvic floor with more weakness on the right lateral wall. Her MMT is as follows: 2/5 MMT for anterior, left, and posterior mark and 1/5 MMT for the right wall. Maribel does have a history of right sided hip pain. She lacks endurance to sustain a pelvic floor contraction for more than 4 seconds. She was educated today on increasing water intake, walking 20 min a day if she can and adding in fiber to her diet as her constipation is a large contributor to her prolapse symptoms. I also started her on pelvic floor endurance holds and hip ER strengthening. She tolerated this well and is a good candidate for PT Physical Therapy Plan Frequency and Duration Frequency of 1x/Week Treatment Duration of 8 treatment (weeks) Plan of Care Start 04/08/25 Date Plan of Care End 06/03/25 Date Therapeutic Interventions Therapeutic Home Exercise Program,Manual Therapy,Neuromuscular Re- Interventions education,Patient/Caregiver Education,Self-Care/Home Management,Soft Tissue Mobilization,Therapeutic Exercises Plan of Care Dates Plan of Care Start Date 04/08/25 Plan of Care End Date 06/03/25 Electronically Signed by: Betty Oliveira, PT 04/08/25 9424 If you are in agreement with this Plan of Care, please return a signed and dated copy. I have reviewed this Plan of Care and certify that the skilled therapy services above are required to meet the patient?s needs. Physician Signature Date Printed Name and Credentials Clinical Instructor Signature Printed Name and Credentials
--- NOTE | 2025-10-14 08:41 | PT.OPDS ---
Current Diagnoses Cystocele, unspecified (04/08/25) Rectocele (04/08/25) Visit Care Team Role Provider Type Lor Alfonso MD Family Provider Physician Primary Care Provider Specialty: Family Practice Obstetrics Address: [address] [place], [address] Email: [email or web address] Candice Hoffman MD Attending Provider Physician Referring Provider Specialty: DUMPMAN Address: [address] [place] [address], [id number] Email: [email or web address] Visit Number Visit Number 1 Discharge Summary PT-OP-A Visit Information Start: 04/08/25 15:18 Freq: Status: Active Protocol: Document 04/08/25 15:18 [facility] (Rec: 04/08/25 15:39 [facility] [id number]) Out-Patient Physical Therapy Visit Information Visit Information Visit Type Initial Evaluation Visit Start Time 15:15 Visit Stop Time 16:00 Visit Number 1 Evaluation Information Evaluation Date 04/08/25 PT-OP-B Current Condition Start: 04/08/25 15:18 Freq: Status: Active Protocol: Document 04/08/25 15:18 [facility] (Rec: 04/08/25 15:39 [facility] [id number]) Current Condition History of Current Condition Onset Date 1 -2 years ago History of Current a year ago noted a bowel was bulging into her vaginal Condition wall and then a few months ago she has a history of constipation and after a bad episode she noted more bulging she has a bowel movement every couple of days. SHe is on semi glutide for weight loss and she started it in june. has to strain. SHe has urinary leakage, there is times when she is sitting that she stands and suddenly has the urge to void and she will leak she can wake up at night leaking and this has happened 3-4 times she drinks 30-40 oz of water per day and 3 per day of soda 3 vaginal deliveries with tearing into the perineum with her first PT-OP-I Pelvic Floor Start: 04/08/25 15:18 Freq: Status: Active Protocol: Document 04/08/25 16:17 [facility] (Rec: 04/08/25 16:23 [facility] [id number]) Pelvic Floor Assessment Urine Pelvic Floor Surgery No Urinary Symptoms Urge Sensation Other Urinary pelvic organ prolapse Symptoms Leakage Size Medium Leakage Cause Exercise Other Leakage Causes with urgency and when walking to the bathroom, pt can leak in all positions such as lying down, sitting, and standing Leaks Per Day 3 per week Voiding Frequency 6-7 times Nocturia 1-2 times Prolapse Cystocele Grade 2 Rectocele Grade 2 Contraction Ability Voluntary Weak Contraction Voluntary Relaxation Weak Manual Muscle 2 Testing Left Manual Muscle 1 Testing Right Manual Muscle 2 Testing Anterior Manual Muscle 2 Testing Posterior Muscle Endurance ( 4 Seconds) PT-OP-T Assessment and Plan Start: 04/08/25 15:18 Freq: Status: Active Protocol: Document 10/14/25 08:40 [facility] (Rec: 10/14/25 08:41 [facility] [id number]) Physical Therapy Assessment Goals 3 Impairment chronic constipation contributing to pelvic organ prolapse Short Term Goal (STG Maribel is educated on bowel stimulating massage, ) encouraged to increase fluid intake/fiber, and walk daily to help stimulate bowel movements STG Duration 4 weeks 2 Impairment decreased pelvic floor endurance Short Term Goal (STG Maribel is able to sustain a pelvic floor contraction in ) supine x 10 seconds STG Duration 4 weeks Fpc Goal (LTG) Maribel is able to sustain a pelvic floor contraction in standing x 5 seconds LTG Duration 8 weeks 1 Impairment Pelvic floor weakness Fpc Goal (LTG) Maribel is able to improve pelvic floor strength by at least 1 muscle grade to 3/5 or better for the levator ani LTG Duration 8 weeks Assessment Summary Assessment Maribel has been seen for her initial evaluation only and she has cancelled her remaining PT visits. She will be discharged at this time Physical Therapy Plan Discharge Physical Therapy Discharge Reasons No Longer Attending PT
== END 2025-10-15 10:08 | disposition home or self-care (01) ==
LOC: PHYS 15:07
PROVIDERS: Family Provider Student in an Organized Health Care Education/Training Program; PCP Student in an Organized Health Care Education/Training Program; Referring Provider Obstetrics & Gynecology; Visit Provider Obstetrics & Gynecology
DX: N81.10 Cystocele, unspecified (principal); N81.6 Rectocele
CPT/HCPCS: 97110; 97162; 97535

== ENCOUNTER → 2025-04-15 09:30 | Outpatient (CLI) | payer BC, SELFPAY ==
[2025-04-15 09:47] LABS: Add Manual Diff / Slide Review NO; Basophils Absolute Auto 100 /uL (0-100); Basophils Percent Auto 0.9 % (0-2); Eosinophils Absolute Auto 100 /uL (0-450); Eosinophils Percent Auto 2.4 % (2-4); Hematocrit 41.2 % (36-46); Hemoglobin 13.7 g/dL (12.0-16.0); Lymphocytes Absolute Auto 1400 /uL (1100-4500); Lymphocytes Percent Auto 23.9 % (25-40); Mean Corpuscular HGB Conc 33.3 % (30-36); Mean Corpuscular Hemoglobin 28.3 PG (26-34); Monocytes Absolute Auto 400 /uL (0-900); Monocytes Percent Auto 6.8 % (3-14); Neutrophils Absolute Auto 3800 /uL (1500-7000); Platelet Count 298 X10^3/uL (150-400); Red Blood Cell Count 4.85 X10^6/uL (4.0-5.2); White Blood Cell Count 5.8 X10^3/uL (4.5-11.0)
[2025-04-15 10:09] LABS: Alanine Aminotransferase 25 IU/L (<35); Albumin 4.1 g/dL (3.5-5.0); Albumin Globulin Ratio 1.8 (1.0-2.8); Alkaline Phosphatase 84 U/L (38-126); Aspartate Aminotransferase 27 IU/L (14-36); BUN Creatinine Ratio 18.5 (6-22); Bilirubin Total 0.5 mg/dL (0.2-1.3); Blood Urea Nitrogen 15 mg/dL (7-17); Calcium 9.4 mg/dL (8.4-10.2); Carbon Dioxide 30 mmol/L (22-32); Chloride 106 mmol/L (98-107); Cholesterol 146 mg/dL (140-199); Estimated Glomerular Filt Rate > 60 mL/min (>60); Globulin 2.3 g/dL (1.7-4.1); Glucose 95 mg/dL (70-99); HDL Cholesterol 63 mg/dL (40-60); HEMOLYSIS < 15 (0-50); LDL Cholesterol Calculated 72 mg/dL (<100); Potassium 4.3 mmol/L (3.4-5.1); Sodium 139 mmol/L (137-145); Total Protein 6.4 g/dL (6.3-8.2); Triglycerides 55 mg/dL (35-150)
[2025-04-15 10:40] LABS: Thyroid Stimulating Hormone 0.302 uIU/mL (0.47-4.68)
[2025-04-16 13:55] LABS: Free T4, Direct Thyroxine 1.56 ng/dL (0.78-2.19)
== END ==
PROVIDERS: Family Medicine; Family Provider Student in an Organized Health Care Education/Training Program; PCP Student in an Organized Health Care Education/Training Program; Referring Provider Student in an Organized Health Care Education/Training Program; Visit Provider Student in an Organized Health Care Education/Training Program
DX: I10 Essential (primary) hypertension (principal)
CPT/HCPCS: 36415; 80053; 80061; 84436; 84439; 84443; 85025

== ENCOUNTER → 2025-09-07 16:24 | Outpatient (CLI) | payer BC, SELFPAY ==
[2025-09-07 17:25] LABS: Add Manual Diff / Slide Review NO; Hematocrit 39.9 % (36-46); Hemoglobin 13.6 g/dL (12.0-16.0); Lymphocytes Absolute Auto 1300 /uL (1100-4500); Mean Corpuscular HGB Conc 34.2 % (30-36); Mean Corpuscular Hemoglobin 29.0 PG (26-34); Mean Corpuscular Volume 85.0 fL (80-100); Platelet Count 279 X10^3/uL (150-400)
[2025-09-07 17:34] LABS: HEMOLYSIS < 15 (0-50); Iron 77 ug/dL (37-170)
[2025-09-07 17:35] LABS: Alanine Aminotransferase 22 IU/L (<35); Albumin 4.4 g/dL (3.5-5.0); Albumin Globulin Ratio 1.5 (1.0-2.8); Alkaline Phosphatase 76 U/L (38-126); Blood Urea Nitrogen 17 mg/dL (7-17); Calcium 9.3 mg/dL (8.4-10.2); Carbon Dioxide 26 mmol/L (22-32); Chloride 103 mmol/L (98-107); Estimated Glomerular Filt Rate > 60 mL/min (>60); Globulin 2.9 g/dL (1.7-4.1); Glucose 83 mg/dL (70-99); HEMOLYSIS < 15 (0-50); Potassium 4.1 mmol/L (3.4-5.1); Sodium 140 mmol/L (137-145); Total Protein 7.3 g/dL (6.3-8.2)
[2025-09-07 17:45] LABS: Percent Iron Saturation 24 % (15-50); Total Iron Binding Capacity 326 ug/dL (265-497); Transferrin 283 mg/dL (206-381)
[2025-09-07 18:07] LABS: Thyroid Stimulating Hormone 0.623 uIU/mL (0.47-4.68)
[2025-09-07 18:10] LABS: Ferritin 34 ng/mL (11-264)
== END ==
PROVIDERS: Family Provider Student in an Organized Health Care Education/Training Program; PCP Student in an Organized Health Care Education/Training Program; Referring Provider Student in an Organized Health Care Education/Training Program; Visit Provider Student in an Organized Health Care Education/Training Program
DX: R53.83 Other fatigue (principal)
CPT/HCPCS: 80053; 82728; 83540; 83550; 84443; 85025